=== PATIENT | male | born 1950 | race Caucasian/White ===

== ENCOUNTER 2018-06-22 14:52 | Emergency (ER) | payer BC, OTHER ==
--- NOTE | 2018-06-22 15:53 | EDPHYS ---
Physician Documentation [facility] Name: Rosy Law Age: 68 yrs Sex: Male : 1950 Arrival Date: 06/22/2018 Time: 14:52 Bed 5 Private MD: ED Physician James Jama HPI: 06/22 15:44 This 68 yrs old Male presents to ER via Ambulatory with complaints of Problem jr8 With Urinary Catheter. 15:44 The patient presents with a Clay catheter problem, is not draining, is leaking urine. jr8 Onset: The symptoms/episode began/occurred acutely, today. Modifying factors: The symptoms are alleviated by nothing, the symptoms are aggravated by urinating. Associated signs and symptoms: The patient has no apparent associated signs or symptoms. Severity of symptoms: At their worst the symptoms were mild, in the emergency department the symptoms are unchanged. The patient has not experienced similar symptoms in the past. The patient has not recently seen a physician. 15:44 Patient had recent bladder tumor removal. Had clay placed and was suppose to have it jr8 out tomorrow with his follow up. Stated that it started to leak around the tube and now not draining at all . Historical: - Allergies: 15:05 No Known Allergies; aa5 - PMHx: 15:05 Anemia; aa5 - PSHx: 15:05 Tumor removed from bladder; aa5 - Immunization history:: Adult Immunizations unknown. - Social history:: Smoking status: Patient uses tobacco products, smokes two packs cigarettes per day. - Ebola Screening: : No symptoms or risks identified at this time. ROS: 15:44 Eyes: Negative for injury, pain, redness, and discharge, ENT: Negative for injury, jr8 pain, and discharge, Neck: Negative for injury, pain, and swelling, Cardiovascular: Negative for chest pain, palpitations, and edema, Respiratory: Negative for shortness of breath, cough, wheezing, and pleuritic chest pain, Abdomen/GI: Negative for abdominal pain, nausea, vomiting, diarrhea, and constipation, Back: Negative for injury and pain, MS/Extremity: Negative for injury and deformity, Skin: Negative for injury, rash, and discoloration, Neuro: Negative for headache, weakness, numbness, tingling, and seizure. 15:44 : Positive for difficulty urinating, Negative for urinary symptoms, pelvic pain, flank pain, penile discharge, penile pain, testicular pain Exam: 15:44 Eyes: Pupils equal round and reactive to light, extra-ocular motions intact. Lids and jr8 lashes normal. Conjunctiva and sclera are non-icteric and not injected. Cornea within normal limits. Periorbital areas with no swelling, redness, or edema. ENT: Nares patent. No nasal discharge, no septal abnormalities noted. Tympanic membranes are normal and external auditory canals are clear. Oropharynx with no redness, swelling, or masses, exudates, or evidence of obstruction, uvula midline. Mucous membranes moist. Neck: Trachea midline, no thyromegaly or masses palpated, and no cervical lymphadenopathy. Supple, full range of motion without nuchal rigidity, or vertebral point tenderness. No Meningismus. Cardiovascular: Regular rate and rhythm with a normal S1 and S2. No gallops, murmurs, or rubs. Normal PMI, no JVD. No pulse deficits. Respiratory: Lungs have equal breath sounds bilaterally, clear to auscultation and percussion. No rales, rhonchi or wheezes noted. No increased work of breathing, no retractions or nasal flaring. Abdomen/GI: Soft, non-tender, with normal bowel sounds. No distension or tympany. No guarding or rebound. No evidence of tenderness throughout. Back: No spinal tenderness. No costovertebral tenderness. Full range of motion. Skin: Warm, dry with normal turgor. Normal color with no rashes, no lesions, and no evidence of cellulitis. MS/ Extremity: Pulses equal, no cyanosis. Neurovascular intact. Full, normal range of motion. Neuro: Awake and alert, GCS 15, oriented to person, place, time, and situation. Cranial nerves II-XII grossly intact. Motor strength 5/5 in all extremities. Sensory grossly intact. Cerebellar exam normal. Normal gait. Vital Signs: 15:05 BP 122 / 53; Pulse 74; Resp 18 S; Temp 98.0(TE); Pulse Ox 100% on R/A; Weight 83.91 kg aa5 (R); Height 6 ft. 1 in. (185.42 cm) (R); Pain 0/10; 15:05 Body Mass Index 24.41 (83.91 kg, 185.42 cm) aa5 MDM: 15:16 Patient medically screened. jr8 15:50 Data reviewed: vital signs, nurses notes, and as a result, I will discharge patient. jr8 Data interpreted: Pulse oximetry: on room air is 100 %. Interpretation: normal. Counseling: I had a detailed discussion with the patient and/or guardian regarding: the historical points, exam findings, and any diagnostic results supporting the discharge/admit diagnosis. Counseling: I had a detailed discussion with the patient and/or guardian regarding: the need for outpatient follow up, a urologist, to return to the emergency department if symptoms worsen or persist or if there are any questions or concerns that arise at home. ED course: Clay was irrigated and now functioning properly. Has appointment tomorrow and with follow up then . 06/22 15:32 Order name: Ana. Order: Clay care; Complete Time: 15:48 jr8 Administered Medications: No medications were administered Disposition: 06/23 09:14 Co-signature as Attending Physician, James Jama MD I agree with the assessment and yuli plan of care. Disposition: 06/22/18 15:52 Discharged to Home. Impression: Retention of urine. - Condition is Stable. - Discharge Instructions: Clay Catheter Care, Adult. - Medication Reconciliation Form, Thank You Letter, Antibiotic Education, Prescription Opioid Use form. - Follow up: Private Physician; When: Tomorrow; Reason: Recheck today's complaints, Continuance of care, Re-evaluation by your physician. - Problem is new. - Symptoms have improved. Signatures: James Jama MD MD cha Calderon, Audri, RN RN aa5 Wilmer Ba PA PA jr8 Renny Hauser RN RN bp Corrections: (The following items were deleted from the chart) 06/22 16:42 15:52 06/22/2018 15:52 Discharged to Home. Impression: Retention of urine. Condition is bp Stable. Forms are Medication Reconciliation Form, Thank You Letter, Antibiotic Education, Prescription Opioid Use. Follow up: Private Physician; When: Tomorrow; Reason: Recheck today's complaints, Continuance of care, Re-evaluation by your physician. Problem is new. Symptoms have improved. jr8
--- NOTE | 2018-06-22 15:53 | ER ---
Nurse's Notes [facility] Name: Rosy Law Age: 68 yrs Sex: Male : 1950 Arrival Date: 06/22/2018 Time: 14:52 Bed 5 Private MD: Diagnosis: Retention of urine Presentation: 06/22 15:03 Presenting complaint: Patient states: "I had a tumor removed from my bladder on Saturday aa5 at the [facility] in [place] and now the catheter it's not really draining and there is purple stuff coming out". Transition of care: patient was not received from another setting of care. Onset of symptoms was June 2018. Risk Assessment: Do you want to hurt yourself or someone else? Patient reports no desire to harm self or others. Initial Sepsis Screen: Does the patient meet any 2 criteria? No. Patient's initial sepsis screen is negative. Does the patient have a suspected source of infection? No. Patient's initial sepsis screen is negative. Care prior to arrival: None. 15:03 Method Of Arrival: Ambulatory aa5 15:03 Acuity: FILIBERTO 3 aa5 Triage Assessment: 15:08 General: Appears distressed, uncomfortable, Behavior is cooperative, appropriate for bp age, anxious. Pain: Complains of pain in pelvis. Historical: - Allergies: 15:05 No Known Allergies; aa5 - PMHx: 15:05 Anemia; aa5 - PSHx: 15:05 Tumor removed from bladder; aa5 - Immunization history:: Adult Immunizations unknown. - Social history:: Smoking status: Patient uses tobacco products, smokes two packs cigarettes per day. - Ebola Screening: : No symptoms or risks identified at this time. Screenin:10 Abuse screen: Denies threats or abuse. Denies injuries from another. Nutritional bp screening: No deficits noted. Tuberculosis screening: No symptoms or risk factors identified. Fall Risk None identified. Assessment: 15:08 General: Appears distressed, uncomfortable, Behavior is cooperative, appropriate for bp age, anxious. Pain: Complains of pain in pelvis. Neuro: Level of Consciousness is awake, alert, obeys commands, Oriented to person, place, time, situation, Appropriate for age. Cardiovascular: No deficits noted. Respiratory: Airway is patent Respiratory effort is even, unlabored, Respiratory pattern is regular, symmetrical. GI: No signs and/or symptoms were reported involving the gastrointestinal system. : No signs and/or symptoms were reported regarding the genitourinary system. EENT: No deficits noted. Derm: No deficits noted. Musculoskeletal: Circulation, motion, and sensation intact. Range of motion: intact in all extremities. 16:41 Reassessment: PT D/C HOME AMBULATORY, LEFT WITHOUT D/C PAPERS. bp Vital Signs: 15:05 BP 122 / 53; Pulse 74; Resp 18 S; Temp 98.0(TE); Pulse Ox 100% on R/A; Weight 83.91 kg aa5 (R); Height 6 ft. 1 in. (185.42 cm) (R); Pain 0/10; 15:05 Body Mass Index 24.41 (83.91 kg, 185.42 cm) aa5 ED Course: 14:52 Patient arrived in ED. mr 15:03 Arm band placed on. aa5 15:04 Triage completed. aa5 15:07 Renny Hauser, RN is Primary Nurse. bp 15:10 Patient has correct armband on for positive identification. Bed in low position. Call bp light in reach. Side rails up X2. 15:16 Wilmer Ba PA is PHCP. jr 15:16 James Jama MD is Attending Physician. jr8 16:42 No provider procedures requiring assistance completed. Patient did not have IV access bp during this emergency room visit. Administered Medications: No medications were administered Outcome: 15:52 Discharge ordered by . jr8 16:42 Discharged to home ambulatory. bp 16:42 Condition: stable 16:42 Discharge instructions given to patient, Instructed on discharge instructions, follow up and referral plans. Demonstrated understanding of instructions, follow-up care. 16:42 Patient left the ED. bp Signatures: Suzan Daniel mr LunaMonica RN RN aa5 Wilmer Ba PA PA jr8 Renny Hauser, VALERIA RN bp
[2018-06-22] MEDS ORDERED: NA CHLORIDE 0.9% 2,000 ML ONE (16:52)
[2018-06-22] MEDS ORDERED: Ringers Lactate 1,000 ML IV ONE (17:12)
== END 2018-06-22 16:42 | disposition home or self-care (01) ==
LOC: ER 14:52
DX: T83.091A Other mechanical complication of indwelling urethral catheter, initial encounter (principal); R33.9 Retention of urine, unspecified; F17.210 Nicotine dependence, cigarettes, uncomplicated; X58.XXXA Exposure to other specified factors, initial encounter
CPT/HCPCS: 99281; J7030